=== PATIENT | male | born 1980 | race Caucasian/White ===

== ENCOUNTER 2017-11-22 13:09 | Emergency (ER) | payer MEDICAID ==
[2017-11-22 13:09] VITALS: BMI 25.0
[2017-11-22] MEDS ORDERED: Sodium Chloride 0.9% 1,000 ML IV ONE (13:42)
--- NOTE | 2017-11-22 13:48 | C.PDOC ---
History Of Present Illness 37 y/o male presents to the ED complaining of profuse watery diarrhea (non- bloody) x 2 days. Patient states that he has abdominal cramping and is uncomfortable, fatigued and washed out. He notes that his son has similar symptoms. Patient had nausea but denies vomiting, fever, chills, travel or any further medical complaints. PMD: Mary Jane Wolfe MD Time Seen by Provider: 11/22/17 13:38 Chief Complaint (Nursing): Abdominal Pain History Per: Patient History/Exam Limitations: no limitations Onset/Duration Of Symptoms: Days (x2 days) Recent travel outside of the [place]: No Past Medical History Reviewed: Historical Data, Nursing Documentation, Vital Signs Vital Signs: Last Vital Signs Temp 97.6 F 11/22/17 13:14 Pulse 79 11/22/17 13:14 Resp 20 11/22/17 13:14 BP 130/77 11/22/17 13:14 Pulse Ox 97 11/22/17 13:56 - Medical History PMH: Asthma, Migraine Surgical History: No Surg Hx - [facility] Procedures INJECT/INFUSE NEC (03/03/15) Family History: States: Unknown Family Hx - Social History Hx Tobacco Use: No (Former smoker) Hx Alcohol Use: No Hx Substance Use: No - Immunization History Hx Influenza Vaccination: No Hx Pneumococcal Vaccination: No Review Of Systems Except As Marked, All Systems Reviewed And Found Negative. (As per HPI, otherwise negatvie) Constitutional: Positive for: Other (Fatigued). Negative for: Fever, Chills Gastrointestinal: Positive for: Nausea, Diarrhea (Profuse watery diarrhea (non bloody)). Negative for: Vomiting Physical Exam - Physical Exam Appears: Well, No Acute Distress Skin: Normal Color, Warm, Dry Head: Atraumatic, Normacephalic Eye(s): bilateral: Normal Inspection, PERRL, EOMI Nose: Normal Throat: Normal Neck: Normal Chest: Symmetrical Cardiovascular: Rhythm Regular, No Murmur Respiratory: Normal Breath Sounds, No Accessory Muscle Use Gastrointestinal/Abdominal: Normal Exam, Soft, No Tenderness Back: Normal Inspection Extremity: Normal ROM, No Deformity Neurological/Psych: Oriented x3 ED Course And Treatment - Laboratory Results Result Diagrams: 11/22/17 14:06 11/22/17 14:06 Lab Interpretation: Abnormal (Mild elevation of lipase) O2 Sat by Pulse Oximetry: 97 (Ra) Pulse Ox Interpretation: Normal Progress Note: Patient treated in ED with IV fluids, Zofran and Bentyl. Reevaluation Time: 15:05 Reassessment Condition: Improved (Patient feels better) Medical Decision Making Medical Decision Making: Time: 13:42 Plan: CMP Lipase CBC w/ diff Bentyl 20mg PO Ondansetron 4mg IVP Sodium Chloride 1L IV ED Obtain Labs Saline lock 3ml NS Urinalysis Scribe Attestation: Documented by Zully Mason acting as a scribe for Anabela Lindsey MD. Scribe Attestation: All medical record entries made by the Scribe were at my direction and personally dictated by me. I have reviewed the chart and agree that the record accurately reflects my personal performance of the history, physical exam, medical decision making, and the department course for this patient. I have also personally directed, reviewed, and agree with the discharge instructions and dis position. Disposition Counseled Patient/Family Regarding: Studies Performed, Diagnosis, Need For Followup, Rx Given - Disposition Referrals: Mary Jane Wolfe MD [Medical Doctor] - Disposition: HOME/ ROUTINE Disposition Time: 15:06 Condition: IMPROVED Prescriptions: Dicyclomine [Bentyl] 20 mg PO QID PRN #10 tab PRN Reason: Pain, Severe (8-10) Ondansetron ODT [Zofran ODT] 1 odt PO QID PRN #10 odt PRN Reason: Nausea/Vomiting Instructions: Acute Diarrhea (ED) Forms: [facility] (Singaporean) - Clinical Impression Clinical Impression: Diarrhea
[2017-11-22] MEDS ORDERED: Sodium Chloride 0.9% 1,000 ML ONE (13:52)
[2017-11-22 14:12] LABS: BASO % 0.2 % (0.0-2.0); EOS # 0.1 K/uL (0.0-0.7); EOS % 1.8 % (0.0-4.0); HEMATOCRIT 42.7 % (35.0-51.0); LYMPH # 1.8 K/uL (1.0-4.3); LYMPH % 31.9 % (20.0-40.0); MEAN CELL VOLUME 91.2 fL (80.0-94.0); MEAN CORPUSCULAR HEMOGLOBIN 31.4 pg (27.0-31.0); MEAN CORPUSCULAR HGB CONC 34.4 g/dL (33.0-37.0); MEAN PLATELET VOLUME 8.7 fL (7.2-11.7); MONO # 0.4 K/uL (0.0-0.8); MONO % 6.3 % (0.0-10.0); RED CELL DISTRIBUTION WIDTH 12.8 % (11.5-14.5); WHITE BLOOD COUNT 5.6 K/uL (4.8-10.8)
[2017-11-22 14:20] LABS: RBC URINE 1 /hpf (0-3); URINE BILIRUBIN NEGATIVE (NEGATIVE); URINE BLOOD NEGATIVE (NEGATIVE); URINE COLOR Yellow (YELLOW); URINE GLUCOSE (UA) NORMAL (Normal); URINE KETONE NEGATIVE (NEGATIVE); URINE LEUKOCYTE ESTERASE NEG Leu/uL (Negative); URINE PROTEIN NEGATIVE (NEGATIVE); WBC URINE 1 /hpf (0-5)
[2017-11-22 14:38] LABS: ALB/GLOB RATIO 1.3 (1.0-2.1); ALKALINE PHOSPHATASE 80 U/L (38-126); ALT/SGPT 46 U/L (21-72); AST/SGOT 29 U/L (17-59); BILIRUBIN,TOTAL 0.5 mg/dL (0.2-1.3); BLOOD UREA NITROGEN 12 mg/dL (9-20); CALCIUM 8.7 mg/dl (8.6-10.4); CARBON DIOXIDE 26 mmol/L (22-30); CHLORIDE 102 mmol/L (98-107); GFR AFRICAN-AMERICAN > 60; GLUCOSE,RANDOM 92 mg/dL (75-110); POTASSIUM 3.8 mmol/L (3.6-5.2); SODIUM 137 mmol/L (132-148); TOTAL PROTEIN 7.7 g/dL (6.3-8.3)
[2017-11-22 15:20] VITALS: BP 118/80; PULSE 66; RESP 18; TEMP 98; O2SAT 100
== END 2017-11-22 15:21 | disposition home or self-care (01) ==
LOC: C.ER 13:09
DX: R19.7 Diarrhea, unspecified (principal); Z87.891 Personal history of nicotine dependence
CPT/HCPCS: 80053; 81001; 83690; 85025; 96361; 96374; 99284; J2405; J7040

== ENCOUNTER 2018-10-21 08:53 | Emergency (ER) | payer MEDICAID, OTHER ==
[2018-10-21 08:55] VITALS: BMI 25.0
[2018-10-21] MEDS ORDERED: Lidocaine 5% Patch TD STA (09:58)
--- NOTE | 2018-10-21 09:58 | C.PDOC ---
History Of Present Illness 38 year old male presents to ED for evaluation of intermittent pain to an area on left sub sternal region for the last 2 days. Pt states he had some cough last week which resolved 3 days ago. Notes pain is worse with deep inspiration, sneezing, and with movement. Denies taking any OTC medications for this pain. Otherwise, denies palpitation, shortness of breath, lightheadedness, fever, chills, nausea, vomiting, abdominal pain, or any other symptoms. Time Seen by Provider: 10/21/18 09:31 Chief Complaint (Nursing): Chest Pain History Per: Patient History/Exam Limitations: no limitations Onset/Duration Of Symptoms: Days Current Symptoms Are (Timing): Still Present Quality: "Pain" Associated Symptoms: denies: Nausea, Dyspnea, Diaphoresis, Syncope Modifying Factors: None Exacerbating Factors: Movement, Deep Breathing Alleviating Factors: None Recent travel outside of the [place]: No Additional History Per: Patient Past Medical History Reviewed: Historical Data, Nursing Documentation, Vital Signs Vital Signs: Last Vital Signs Temp 97.6 F 10/21/18 09:05 Pulse 78 10/21/18 09:33 Resp 16 10/21/18 09:33 BP 119/83 10/21/18 09:33 Pulse Ox 98 10/21/18 09:33 - Medical History PMH: Asthma, Migraine - [facility] Procedures INJECT/INFUSE NEC (03/03/15) Family History: States: Unknown Family Hx - Social History Hx Tobacco Use: No (Former smoker) Hx Alcohol Use: Yes Hx Substance Use: Yes - Immunization History Hx Influenza Vaccination: No Hx Pneumococcal Vaccination: No Review Of Systems Except As Marked, All Systems Reviewed And Found Negative. Constitutional: Negative for: Fever, Chills Cardiovascular: Positive for: Chest Pain. Negative for: Palpitations, Edema, Light Headedness Respiratory: Negative for: Cough, Shortness of Breath, Sputum Gastrointestinal: Negative for: Nausea, Vomiting Neurological: Negative for: Headache, Dizziness Physical Exam - Physical Exam Appears: Non-toxic, No Acute Distress Skin: Normal Color, Warm, Dry Head: Atraumatic, Normacephalic Eye(s): bilateral: Normal Inspection Oral Mucosa: Moist Neck: Normal ROM, Supple Chest: Symmetrical, No Deformity (no crepitus), Tenderness (left para sternal tenderness and irritation along the left mid nipple line/ costochondral region; reproducible pain with movement ), No Ecchymosis Cardiovascular: Rhythm Regular, No Murmur Respiratory: Normal Breath Sounds, No Accessory Muscle Use, No Rales, No Rhonchi, No Wheezing Gastrointestinal/Abdominal: Soft, No Tenderness Extremity: Normal ROM, No Pedal Edema Neurological/Psych: Oriented x3, Normal Speech ED Course And Treatment ECG: Interpreted By Me ECG Rhythm: Sinus Rhythm ECG Interpretation: Normal Rate From EC O2 Sat by Pulse Oximetry: 98 (on RA) Pulse Ox Interpretation: Normal - Radiology CXR: Interpreted by Me, Viewed By Me CXR Interpretation: Yes: No Acute Disease (no change from prior) Medical Decision Making Medical Decision Making: Plan: * CXR * Flexeril * Lidoderm * Toradol Disposition Counseled Patient/Family Regarding: Studies Performed, Diagnosis, Need For Followup, Rx Given - Disposition Referrals: [facility] [Outside] [facility] [Outside] Disposition: HOME/ ROUTINE Disposition Time: 10:18 Condition: IMPROVED Additional Instructions: APPLY PATCH TO AFFECTED AREA. MAX 3 PATCHES AT A TIME. REMOVE PATCH 12 HOURS AFTER INITIAL APPLICATION. ALTERNATE 12 HOURS ON, 12 HOURS OFF. Prescriptions: Cyclobenzaprine [Flexeril] 10 mg PO TID #15 tab Ibuprofen [Motrin] 600 mg PO Q6 #30 tab Lidocaine 5% [Lidoderm] 1 ea TD PRN PRN #10 patch PRN Reason: Pain, Moderate (4-7) Instructions: Costochondritis (DC) Forms: [facility] (Wolof), Work Excuse - Clinical Impression Clinical Impression: Costochondral chest pain - Scribe Statement The provider has reviewed the documentation as recorded by the Scribgloria Mason All medical record entries made by the Scribe were at my direction and personally dictated by me. I have reviewed the chart and agree that the record accurately reflects my personal performance of the history, physical exam, medical decision making, and the department course for this patient. I have also personally directed, reviewed, and agree with the discharge instructions and disposition.
[2018-10-21] MEDS ORDERED: Lidocaine 5% Patch TD ONE (10:09)
[2018-10-21 10:56] VITALS: BP 127/83; PULSE 70; RESP 20; TEMP 98.1; O2SAT 100
--- NOTE | 2018-10-21 12:49 | RAD ---
Date of service: 10/21/2018 HISTORY: COUGH COMPARISON: 12/13/2016 TECHNIQUE: Chest PA and lateral FINDINGS: LUNGS: No active pulmonary disease. PLEURA: No significant pleural effusion identified. No pneumothorax apparent. CARDIOVASCULAR: No aortic atherosclerotic calcification present. Normal cardiac size. No pulmonary vascular congestion. OSSEOUS STRUCTURES: No significant abnormalities. VISUALIZED UPPER ABDOMEN: Normal. OTHER FINDINGS: None. IMPRESSION: No active disease.
--- NOTE | 2018-10-24 18:00 | CARD ---
APPROVED REPORT Date of service: 10/21/2018 EKG Measurement Heart [id number] <Conclusion> Normal sinus rhythm Rightward axis Borderline ECG
== END 2018-10-21 10:56 | disposition home or self-care (01) ==
LOC: C.ER 08:53
DX: R07.9 Chest pain, unspecified (principal)
CPT/HCPCS: 71046; 96372; 99284; J1885

== ENCOUNTER 2019-02-05 18:35 | Emergency (ER) | payer MEDICAID, OTHER | END 2019-02-05 20:28 | disposition home or self-care (01) | LOC: C.ER 18:35 ==

== ENCOUNTER 2019-03-05 17:31 | Emergency (ER) | payer MEDICAID ==
[2019-03-05 17:31] VITALS: BMI 25.0
[2019-03-05 18:02] VITALS: RESP 18; O2SAT 99
[2019-03-05] MEDS ORDERED: Sodium Chloride 0.9% 1,000 ML IV STA (19:09)
--- NOTE | 2019-03-05 19:09 | C.PDOC ---
History Of Present Illness 38-year-old male presents to the ED for evaluation of swelling and infection to right thigh region. Patient states that for the last two months, he has had an intermittent rash for which he was told he has allergy and contact dermatitis. Patient has been evaluated in this ED and [place] ED in the past. Over the past several days, patient states he has now developed an infection to the area and has right thigh pain. Patient denies fever, chills. Time Seen by Provider: 03/05/19 18:43 Chief Complaint (Nursing): Abnormal Skin Integrity History Per: Patient History/Exam Limitations: no limitations Onset/Duration Of Symptoms: Days Current Symptoms Are (Timing): Still Present Additional History Per: Patient Past Medical History Reviewed: Historical Data, Nursing Documentation, Vital Signs Vital Signs: Last Vital Signs Temp 98.2 F 03/05/19 17:59 Pulse 92 H 03/05/19 17:59 Resp 18 03/05/19 17:59 BP 131/89 03/05/19 17:59 Pulse Ox 99 03/05/19 17:59 - Medical History PMH: Asthma, Migraine Surgical History: No Surg Hx - [facility] Procedures INJECT/INFUSE NEC (03/03/15) Family History: States: Unknown Family Hx - Social History Hx Tobacco Use: No (Former smoker) Hx Alcohol Use: Yes Hx Substance Use: Yes (marijuna) - Immunization History Hx Tetanus Toxoid Vaccination: No Hx Influenza Vaccination: No Hx Pneumococcal Vaccination: No Review Of Systems Constitutional: Negative for: Fever, Chills Skin: Positive for: Other (swelling and infection to right thigh ) Physical Exam - Physical Exam Appears: Non-toxic, No Acute Distress Skin: Warm, Dry, Other (right thigh: two pustules with surrounding warmth and erythema. no fluctuance ) Head: Atraumatic, Normacephalic Eye(s): bilateral: Normal Inspection Oral Mucosa: Moist Neck: Supple Chest: Symmetrical, No Deformity, No Tenderness Cardiovascular: Rhythm Regular, No Murmur Respiratory: Normal Breath Sounds, No Rales, No Rhonchi, No Wheezing Extremity: Normal ROM, Tenderness (right thigh), Capillary Refill (less than 2 seconds ), No Deformity Pulses: Left Dorsalis Pedis: Normal, Right Dorsalis Pedis: Normal Neurological/Psych: Oriented x3, Normal Speech, Normal Cognition ED Course And Treatment - Laboratory Results Result Diagrams: 03/05/19 20:29 03/05/19 20:29 O2 Sat by Pulse Oximetry: 99 (on RA ) Pulse Ox Interpretation: Normal Progress Note: Area appears like cellulitis or a developing furuncle. Bloodwork ordered and reviewed. Results are unremarkable. Cleocin IVP and IV Fluids given. On reassesment, patient is resting comfortably, showing no signs of distress and is stable for discharge. Patient is advised to follow up with his PMD within 1-2 days for further evaluation. Area on thigh was margined with skin marker. Patient is advised to observe the area. If symptoms cross the marked border or if new symptoms develop, patient is advised to return to the ED immediately for admission. Disposition - Disposition Disposition: HOME/ ROUTINE Disposition Time: 22:07 Condition: STABLE Additional Instructions: Follow up with your PMD/Clinic within 1-2 days. Return to ED immediately if feel worse ( if redness of skin crosses the marked margins, if pain gets worse, if yo u develop fever/chills, if you develop new lesions). 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 - Scribe Statement The provider has reviewed the documentation as recorded by the Scribe (Sherry Mason) All medical record entries made by the Scribe were at my direction and personally dictated by me. I have reviewed the chart and agree that the record accurately reflects my personal performance of the history, physical exam, medical decision making, and the department course for this patient. I have also personally directed, reviewed, and agree with the discharge instructions and disposition.
[2019-03-05] MEDS ORDERED: Clindamycin 450 MG in Sodium Chloride 0.9% 50 ML IVPB STA (19:12)
[2019-03-05] MEDS ORDERED: Sodium Chloride 0.9% 1,000 ML ONE (19:49)
[2019-03-05 20:35] LABS: BASO % 0.5 % (0.0-2.0); EOS % 0.5 % (0.0-4.0); HEMOGLOBIN 13.6 g/dL (12.0-18.0); LYMPH # 2.3 K/uL (1.0-4.3); LYMPH % 26.6 % (20.0-40.0); MEAN CORPUSCULAR HEMOGLOBIN 31.7 pg (27.0-31.0); MEAN CORPUSCULAR HGB CONC 33.7 g/dL (33.0-37.0); MEAN PLATELET VOLUME 8.8 fL (7.2-11.7); MONO # 0.5 K/uL (0.0-0.8); MONO % 6.2 % (0.0-10.0); NEUT # 5.8 K/uL (1.8-7.0); NEUT % 66.2 % (50.0-75.0); NRBC % 0.1 % (0.0-2.0); RBC 4.29 Mil/uL (4.40-5.90); RED CELL DISTRIBUTION WIDTH 12.6 % (11.5-14.5); WHITE BLOOD COUNT 8.7 K/uL (4.8-10.8)
[2019-03-05 20:49] LABS: ALB/GLOB RATIO 1.6 (1.0-2.1); ALBUMIN 4.3 g/dL (3.5-5.0); ALT/SGPT 31 U/L (21-72); AST/SGOT 29 U/L (17-59); BLOOD UREA NITROGEN 8 mg/dL (9-20); CALCIUM 9.6 mg/dl (8.6-10.4); GFR NON-AFRICAN AMERICAN > 60
[2019-03-05 21:40] VITALS: BP 133/66; PULSE 82; TEMP 98.3
== END 2019-03-05 22:16 | disposition home or self-care (01) ==
LOC: C.ER 17:31
DX: L03.115 Cellulitis of right lower limb (principal)
CPT/HCPCS: 80053; 85025; 87040; 96360; 99283; J7030

== ENCOUNTER 2019-03-07 18:09 | Emergency (ER) | payer MEDICAID ==
[2019-03-07 18:09] VITALS: BMI 25.0
[2019-03-07 18:13] VITALS: BP 148/91; PULSE 86; RESP 18; TEMP 97.8; O2SAT 100
--- NOTE | 2019-03-07 18:27 | C.PDOC ---
History Of Present Illness 38 y/o male presents to the ER for wound check to the right thigh. Patient was seen for pain and swelling of right thigh in [facility] ER 2 days ago and he was discharged with prescription for Clindamycin and Mupirocin for cellulitis. Patient reports that he is taking the medication. Denies having drainage from site, fever,chills,nausea, and vomiting. Time Seen by Provider: 03/07/19 18:18 Chief Complaint (Nursing): Wound Check History Per: Patient History/Exam Limitations: no limitations Past Medical History Reviewed: Historical Data, Nursing Documentation, Vital Signs Vital Signs: Last Vital Signs Temp 97.8 F 03/07/19 18:10 Pulse 86 03/07/19 18:10 Resp 18 03/07/19 18:10 BP 148/91 H 03/07/19 18:10 Pulse Ox 100 03/07/19 18:10 - Medical History PMH: Asthma, Migraine Surgical History: No Surg Hx - [facility] Procedures INJECT/INFUSE NEC (03/03/15) Family History: States: No Known Family Hx - Social History Hx Tobacco Use: No (Former smoker) Hx Alcohol Use: Yes Hx Substance Use: Yes (marijuna) - Immunization History Hx Tetanus Toxoid Vaccination: No Hx Influenza Vaccination: No Hx Pneumococcal Vaccination: No Review Of Systems Constitutional: Negative for: Fever, Chills Physical Exam - Physical Exam Appears: Non-toxic, No Acute Distress Skin: Normal Color, Warm, Dry, Other (2 marked erythematous areas to right thigh, smaller in size compared to previous visit as per patient, no active drainage) Head: Atraumatic, Normacephalic Eye(s): bilateral: Normal Inspection Neck: Supple Chest: Symmetrical Cardiovascular: Rhythm Regular Respiratory: Normal Breath Sounds, No Wheezing Extremity: Normal ROM, No Pedal Edema, No Calf Tenderness Neurological/Psych: Oriented x3, Normal Speech, Normal Motor, Normal Sensation Gait: Steady ED Course And Treatment O2 Sat by Pulse Oximetry: 100 (RA) Pulse Ox Interpretation: Normal Disposition Counseled Patient/Family Regarding: Diagnosis, Need For Followup, Rx Given - Disposition Referrals: [facility] [Outside] Disposition: HOME/ ROUTINE Disposition Time: 18:39 Condition: STABLE Additional Instructions: Continue oral and topical antibiotics as instructed Follow up in Clinic/PMD in 1-2 days if symptoms persist Return to ED if symptoms worsen Instructions: Wound Care (DC) Forms: [facility] (Central African) - Clinical Impression Clinical Impression: Visit for wound care - 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 - Scribe Statement The provider has reviewed the documentation as recorded by the Scribe Vlad Andujar Provider Attestation All medical record entries made by the Scribe were at my direction and pers onally dictated by me. I have reviewed the chart and agree that the record accurately reflects my personal performance of the history, physical exam, medical decision making, and the department course for this patient. I have also personally directed, reviewed, and agree with the discharge instructions and disposition.
== END 2019-03-07 18:57 | disposition home or self-care (01) ==
LOC: C.ER 18:09
DX: Z48.00 Encounter for change or removal of nonsurgical wound dressing (principal); Z87.891 Personal history of nicotine dependence